=== PATIENT | male | born 1995 ===

== ENCOUNTER → 2019-04-02 10:04 | Outpatient (CLI) | payer OTHER, SELFPAY ==
[2019-04-02 15:06] LABS: Semen Viscosity Normal (Normal); Sperm Count 3 mil/mm3 (20-160); WBCs,Semen Small
[2019-04-02 15:07] LABS: 3Hr Motility Quality Weak Progression (Mod-Rapid); 3Hr Sperm Motility 20 % (50-60); Motility Quality Good Progression (Mod-Rapid); Sperm Motility 75 % (50-90)
[2019-04-02 15:53] LABS: Sperm Morphology Normal (Normal)
== END ==
LOC: LAB 10:06 → LAB.DROPOF 10:11
PROVIDERS: Visit Provider Obstetrics & Gynecology
DX: Z31.41 Encounter for fertility testing (principal)
CPT/HCPCS: 89320